=== PATIENT | male | born 1990 | race Caucasian/White ===

== ENCOUNTER 2016-05-27 17:06 | Emergency (ER) | payer OTHER ==
[~2016-05-27] VITALS: Ht 182.9 cm; Wt 68.0 kg
[2016-05-27 18:00] LABS: HEMATOCRIT 44.6 % (42.0-52.0); HEMOGLOBIN 15.4 gm/dL (14.0-18.0); MCH 29.4 pg (26.0-34.0); MCHC 34.6 g/dL (28.0-37.0); MCV 85.2 fL (80.0-100.0); PLATELET COUNT 213 thou/uL (150-400); RBC 5.24 mil/uL (4.50-6.00); RDW 12.4 % (10.5-14.5); WBC 7.6 thou/uL (4.0-11.0)
[2016-05-27 18:10] LABS: CALCIUM 8.8 mg/dL (8.5-10.1); CREATININE 1.1 mg/dL (0.6-1.3); POTASSIUM 3.4 mmol/L (3.5-5.1)
[2016-05-27 18:14] LABS: DIRECT BILIRUBIN 0.2 mg/dL (<0.1-0.3); TOTAL BILIRUBIN 1.1 mg/dL (<0.1-1.0); TOTAL PROTEIN 7.2 g/dL (6.4-8.2)
[2016-05-27 18:18] LABS: MANUAL DIFF YES
[2016-05-27 18:43] LABS: ABSOLUTE NEUTROPHILS 6.7 thou/uL (1.4-8.2); ANISOCYTOSIS 1+; TOTAL CELL COUNT 100
[2016-05-27] MEDS ORDERED: ADDERALL 20 MG20 M1 PO (19:07)
[2016-05-27] MEDS ORDERED: ONDANSETRON HCL4 M2 PO (19:33)
[2016-05-27 19:42] VITALS: BP 95/52
== END 2016-05-27 19:43 | disposition home or self-care (01) ==
LOC: ER 17:06
PROVIDERS: Nurse Practitioner
DX: K52.89 Other specified noninfective gastroenteritis and colitis (principal); F10.99 Alcohol use, unspecified with unspecified alcohol-induced disorder; Z98.890 Other specified postprocedural states